=== PATIENT | male | born 1950 | race Caucasian/White ===

== ENCOUNTER 2019-12-21 10:16 | Outpatient (CLI) | payer MEDICARE ==
--- NOTE | 2019-12-21 10:42 | RAD ---
EXAM: Two views chest PROVIDED CLINICAL HISTORY: Dyspnea COMPARISON: None FINDINGS: Cardiac silhouette and pulmonary vasculature are within normal limits. There is symmetric minimal bi apical pleural thickening. The lungs otherwise appear clear. Mild degenerative changes are seen in the spine. There are mild wedge-shaped deformities involving midthoracic vertebral bodies which may r epresent mild compression fractures of indeterminate age. Postsurgical changes lower cervical spine are noted. IMPRESSION: 1. No acute cardiopulmonary process. 2. Mild wedge-shaped deformities involving midthoracic vertebral bodies which may represent mild wedg e-shaped compression fractures of indeterminate age. There is osteopenia..
== END 2019-12-21 10:17 | disposition home or self-care (01) ==
LOC: RAD 10:16
PROVIDERS: ATTEND Internal Medicine
DX: R06.00 Dyspnea, unspecified (principal); M43.9 Deforming dorsopathy, unspecified; M85.80 Other specified disorders of bone density and structure, unspecified site
CPT/HCPCS: 71046